=== PATIENT | male | born 1965 | race African-American/Black ===

== ENCOUNTER 2018-02-05 08:09 | Observation (INO) ==
--- NOTE | 2018-02-05 08:39 | ED ---
HPI General Chief Complaint: Dizziness Stated Complaint: vertigo Time Seen by Provider: 02/05/18 08:27 Source: patient Mode of arrival: ambulatory Limitations: no limitations History of Present Illness HPI Narrative: 52-year-old male patient with history of hypertension, previous history of diabetes, presents to the ER today because he woke up this morning feeling dizzy, felt like he was going to faint. He states that it lasted until he came to the ER and he states is now subsiding. He denies any headaches, chest pains, trouble breathing, vomiting, fevers, or any other symptoms. He denies any numbness, difficulty walking, difficulty talking, weakness, or other symptoms. Related Data Home Medications Medication Instructions Recorded Confirmed amlodipine 02/05/18 carvedilol 02/05/18 clonidine HCl 0.2 mg PO BID 02/05/18 02/05/18 furosemide 02/05/18 hydroxyzine HCl 02/05/18 isosorbide dinitrate 02/05/18 lisinopril 02/05/18 Allergies Allergy/AdvReac Type Severity Reaction Status Date / Time iodine Allergy Severe Unverified 12/08/16 19:09 potassium iodide Allergy Severe Unverified 12/08/16 19:09 povidone-iodine Allergy Severe Unverified 12/08/16 19:09 sodium iodide Allergy Severe Unverified 12/08/16 19:09 sodium iodide Allergy Severe Unverified 12/08/16 19:09 Review of Systems ROS: all other systems reviewed are negative [facility] Medical History Medical History HTN (hypertension) (Acute) Social History Social History Smoking Status: Never smoker How Often Do You Have a Drink Containing Alcohol: Never Recent Travel in [facility] within the Last 8 Weeks: No Recent Out of Country Travel within the Last 8 Weeks: No Immunization History Tetanus Immunization: Unsure Exam Narrative Exam Narrative: GENERAL: Well-developed middle-age -[place] male patient currently in mild distress. Awake and oriented x3. SKIN: Focused skin assessment warm/dry. HEAD: Atraumatic. Normocephalic. EYES: Pupils equal and round. No scleral icterus. No injection or drainage. ENT: No nasal bleeding or discharge. Mucous membranes pink and moist. NECK: Trachea midline. No JVD. Supple. CARDIOVASCULAR: Regular rate and rhythm. No murmur appreciated. RESPIRATORY: No accessory muscle use. Clear to auscultation. Breath sounds equal bilaterally. GASTROINTESTINAL: Abdomen soft, non-tender, nondistended. Hepatic and splenic margins not palpable. MUSCULOSKELETAL: No obvious deformities. No clubbing. No cyanosis. No edema. NEUROLOGICAL: Awake and alert. No obvious cranial nerve deficits. Motor grossly within normal limits. Normal speech. No pronator drift. Negative Romberg. PSYCHIATRIC: Appropriate mood and affect; insight and judgment normal. Course Initial Documented Vital Signs Temperature 97.7 F 02/05/18 08:12 Pulse Rate 58 L 02/05/18 08:12 Blood Pressure 140/65 02/05/18 08:12 Pulse Oximetry 98 02/05/18 08:12 Last Documented Vital Signs Temperature 97.7 F 02/05/18 08:12 Pulse Rate 45 L 02/05/18 09:50 Respiratory Rate 18 02/05/18 09:50 Blood Pressure 160/87 H 02/05/18 09:50 Pulse Oximetry 99 02/05/18 09:50 Medical Decision Making MDM Narrative Medical decision making narrative: Lab work was fairly unremarkable for electrolyte issues. His EKG does show significant sinus bradycardia with a first-degree AV block, rate is running in the high 40s. I think that is why he is symptomatic. Troponins are negative. No electrolyte abnormalities were identified. At this point, my plan would be to admit him as an observation for further evaluation of the bradycardia. He did take clonidine this morning. He is otherwise also on carvedilol which she did not take this morning. The case was discussed with Dr. Adhikari for admission. Medical Screen Exam Complete: Yes Emergency Medical Condition: Yes Differential Diagnosis Differential Diagnosis: Orthostasis versus dehydration versus dysrhythmias versus electrolyte abnormalities Lab Data Lab results reviewed: Yes I reviewed the patient's lab results. Result diagrams: 02/05/18 08:45 02/05/18 08:45 Lab Results 02/05/18 02/05/18 02/05/18 Range/Units 08:45 08:45 08:45 WBC 3.4 L (4.0-11.0) th/mm3 RBC 4.34 L (4.50-5.90) mil/mm3 Hgb 12.6 L (13.0-17.0) gm/dL Hct 37.4 L (39.0-51.0) % MCV 86.2 (80.0-100.0) fL MCH 29.2 (27.0-34.0) pg MCHC 33.8 (32.0-36.0) % RDW 14.1 (11.6-17.2) % Plt Count 192 (150-450) th/mm3 MPV 8.4 (7.0-11.0) fL Neut % (Auto) 62.3 (16.0-70.0) % Lymph % (Auto) 20.1 (9.0-44.0) % [place] % (Auto) 12.3 H (0.0-8.0) % Eos % (Auto) 4.6 H (0.0-4.0) % Baso % (Auto) 0.7 (0.0-2.0) % Neut # (Auto) 2.1 (1.8-7.7) th/mm3 Lymph # (Auto) 0.7 L (1.0-4.8) th/mm3 [place] # (Auto) 0.4 (0.0-0.9) th/mm3 Eos # (Auto) 0.2 (0.0-0.4) th/mm3 Baso # (Auto) 0.0 (0.0-0.2) th/mm3 WBC Differential . Differential Comment Auto diff final Sodium 137 (136-145) meq/L Potassium 4.5 (3.5-5.1) meq/L Chloride 106 (98-107) meq/L Carbon Dioxide 24.8 (21.0-32.0) meq/L Anion Gap 6 (5-15) meq/L BUN 40 H (7-18) mg/dL Creatinine 1.87 H (0.60-1.30) mg/dL Estimated GFR 46 L (>89) mL/min Random Glucose 118 H (74-106) mg/dL Calcium 8.5 (8.5-10.1) mg/dL Total Bilirubin 0.3 (0.2-1.0) mg/dL AST 21 (15-37) U/L ALT 21 (12-78) U/L Alkaline Phosphatase 66 (45-117) U/L Troponin I 0.02 (0.02-0.05) ng/mL Total Protein 8.0 (6.4-8.2) g/dL Albumin 3.4 (3.4-5.0) g/dL Urine Color (Yellw/Straw) Urine Clarity (Clear) Urine pH (5.0-8.5) Ur Specific [place] (1.002-1.035) Urine Protein (Neg-Trace) mg/dL Urine Glucose (UA) (Negative) mg/dL Urine Ketones (Negative) mg/dL Urine Occult Blood (Negative) Urine Nitrate (Negative) Urine Bilirubin (Negative) Urine Urobilinogen (Less than 2) mg/dL Ur Leukocyte Esterase (Negative) Urine RBC (0-3) /hpf Ur Squamous Epith Cells (0-5) /hpf Urine Mucus (Occasional) /lpf Micro UA Comment Ur Microscopic Review Urine Culture Comments Urine Opiates Screen Neg (Neg) Ur Barbiturates Screen Neg (Neg) Ur Amphetamines Screen Neg (Neg) U Benzodiazepines Scrn Neg (Neg) Urine Cocaine Screen Neg (Neg) U Cannabinoids Screen Neg (Neg) 02/05/18 Range/Units 08:45 WBC (4.0-11.0) th/mm3 RBC (4.50-5.90) mil/mm3 Hgb (13.0-17.0) gm/dL Hct (39.0-51.0) % MCV (80.0-100.0) fL MCH (27.0-34.0) pg MCHC (32.0-36.0) % RDW (11.6-17.2) % Plt Count (150-450) th/mm3 MPV (7.0-11.0) fL Neut % (Auto) (16.0-70.0) % Lymph % (Auto) (9.0-44.0) % [place] % (Auto) (0.0-8.0) % Eos % (Auto) (0.0-4.0) % Baso % (Auto) (0.0-2.0) % Neut # (Auto) (1.8-7.7) th/mm3 Lymph # (Auto) (1.0-4.8) th/mm3 [place] # (Auto) (0.0-0.9) th/mm3 Eos # (Auto) (0.0-0.4) th/mm3 Baso # (Auto) (0.0-0.2) th/mm3 WBC Differential Differential Comment Sodium (136-145) meq/L Potassium (3.5-5.1) meq/L Chloride (98-107) meq/L Carbon Dioxide (21.0-32.0) meq/L Anion Gap (5-15) meq/L BUN (7-18) mg/dL Creatinine (0.60-1.30) mg/dL Estimated GFR (>89) mL/min Random Glucose (74-106) mg/dL Calcium (8.5-10.1) mg/dL Total Bilirubin (0.2-1.0) mg/dL AST (15-37) U/L ALT (12-78) U/L Alkaline Phosphatase (45-117) U/L Troponin I (0.02-0.05) ng/mL Total Protein (6.4-8.2) g/dL Albumin (3.4-5.0) g/dL Urine Color Straw (Yellw/Straw) Urine Clarity Clear (Clear) Urine pH 5.0 (5.0-8.5) Ur Specific [place] 1.010 (1.002-1.035) Urine Protein Negative (Neg-Trace) mg/dL Urine Glucose (UA) Negative (Negative) mg/dL Urine Ketones Negative (Negative) mg/dL Urine Occult Blood Negative (Negative) Urine Nitrate Negative (Negative) Urine Bilirubin Negative (Negative) Urine Urobilinogen Less than 2 (Less than 2) mg/dL Ur Leukocyte Esterase Negative (Negative) Urine RBC Less than 1 (0-3) /hpf Ur Squamous Epith Cells <1 (0-5) /hpf Urine Mucus Few H (Occasional) /lpf Micro UA Comment Culture not ind Ur Microscopic Review Not Reportable Urine Culture Comments Culture not ind Urine Opiates Screen (Neg) Ur Barbiturates Screen (Neg) Ur Amphetamines Screen (Neg) U Benzodiazepines Scrn (Neg) Urine Cocaine Screen (Neg) U Cannabinoids Screen (Neg) ECG Data Attestation: I personally reviewed and interpreted this ECG as follows: Interpretation: EKG shows sinus bradycardia at a rate of 49 bpm. No signs of acute ST elevations or depressions. Discharge Plan Discharge Details Anticipated Discharge Date: 02/05/18 Physicians Team ED Provider: Clint Sol Primary Care Provider: UNKNOWN, Rxs /Orders / Referrals /Forms Prescriptions: No Action clonidine HCl 0.2 mg Tablet 0.2 mg PO BID RF: 0 amlodipine RF: 0 carvedilol RF: 0 furosemide RF: 0 hydroxyzine HCl RF: 0 isosorbide dinitrate RF: 0 lisinopril RF: 0 Discharge Interventions Interventions: Vital Signs Last Done: 02/05/18 09:50 Status ED Status: With Doctor
[2018-02-05 08:55] VITALS: O2SAT 99
[2018-02-05 08:58] LABS: Baso % (Auto) 0.7 % (0.0-2.0); Eos # (Auto) 0.2 th/mm3 (0.0-0.4); Eos % (Auto) 4.6 % (0.0-4.0); Hematocrit 37.4 % (39.0-51.0); Hemoglobin 12.6 gm/dL (13.0-17.0); Lymph # (Auto) 0.7 th/mm3 (1.0-4.8); Lymph % (Auto) 20.1 % (9.0-44.0); Mean Corpuscular HGB Conc 33.8 % (32.0-36.0); Mean Corpuscular Hemoglobin 29.2 pg (27.0-34.0); Mean Corpuscular Volume 86.2 fL (80.0-100.0); Mean Platelet Volume 8.4 fL (7.0-11.0); Mono # (Auto) 0.4 th/mm3 (0.0-0.9); Mono % (Auto) 12.3 % (0.0-8.0); Neut # (Auto) 2.1 th/mm3 (1.8-7.7); Neut % (Auto) 62.3 % (16.0-70.0); Platelet Count 192 th/mm3 (150-450); Red Blood Count 4.34 mil/mm3 (4.50-5.90); Red Cell Distribution Width 14.1 % (11.6-17.2); White Blood Count 3.4 th/mm3 (4.0-11.0)
[2018-02-05 09:09] LABS: Bilirubin,Urine Negative (Negative); Clarity,Urine Clear (Clear); Color,Urine Straw (Yellw/Straw); Glucose,Urine (UA) Negative (Negative); Leukocyte Esterase,Urine Negative (Negative); Mucus,Urine Few /lpf (Occasional); Nitrite,Urine Negative (Negative); Squamous Epithelial Cell,Urine <1 /hpf (0-5)
[2018-02-05 09:11] LABS: Alanine Aminotransferase 21 U/L (12-78)
[2018-02-05 09:15] LABS: Alkaline Phosphatase 66 U/L (45-117); Amphetamine Screen,Urine Neg (Neg); Barbiturate Screen,Urine Neg (Neg); Cannabinoid Screen,Urine Neg (Neg); Cocaine Screen,Urine Neg (Neg); Troponin I 0.02 ng/mL (0.02-0.05)
[2018-02-05 09:16] LABS: Opiate Screen,Urine Neg (Neg)
[2018-02-05 09:18] LABS: Albumin 3.4 g/dL (3.4-5.0); Anion Gap 6 meq/L (5-15); Aspartate Aminotransferase 21 U/L (15-37); Blood Urea Nitrogen 40 mg/dL (7-18); Calcium 8.5 mg/dL (8.5-10.1); Carbon Dioxide 24.8 meq/L (21.0-32.0); Chloride 106 meq/L (98-107); Glomerular Filtration Rate 46 mL/min (>89); Glucose,Random 118 mg/dL (74-106); Potassium 4.5 meq/L (3.5-5.1); Sodium 137 meq/L (136-145)
[2018-02-05] MEDS ORDERED: Acetaminophen 325 MG Tablet PO PRN (10:45)
[2018-02-05] MEDS ORDERED: Sod Chloride 0.9% Inj 1,000 ML IV.CONT SCH (10:45)
--- NOTE | 2018-02-05 11:09 | P.HP ---
<Sonya Jacome W - Last Filed: 02/05/18 14:16> History of Present Illness Primary Care Physician: UNKNOWN Chief Complaint: dizziness History of Present Illness: This is a 52 year old male patient with a past medical history which includes HTN, CKD stage, CHF and DM diet controlled not on medication. Patient presents to the ER due to dizziness which started this AM. Patient reports he woke up and felt like he was going to faint. Patient did not fall or lose consciences. Patient reports that the dizziness had resolved since being in the ER. Patient denies any headaches, chest pains, trouble breathing, vomiting, fevers, numbness, difficulty walking, difficulty talking, weakness. 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 ETOH use, Tobacco use or illicit drug use - Diagnosis (1) Bradycardia Review of Systems All other systems reviewed negative except as stated in HPI [facility] - History History Provided By: Patient - Medical History Medical History: Medical History (Last Reviewed 02/05/18 @ 13:47 by Samantha Irwin) HTN (hypertension) - Tobacco History Smoking Status: Never smoker - Alcohol History How Often Do You Have a Drink Containing Alcohol: Never - Travel History Recent Travel in the [place] Within the Last 8 Weeks: No Recent Travel Out of the Country Within the Last 8 Weeks: No - Immunization History Tetanus Immunization: Unsure Medications and Allergies Allergies Allergy/AdvReac Type Severity Reaction Status Date / Time iodine Allergy Severe Swelling Verified 02/05/18 11:22 of Lip/Tongue/Throat potassium iodide Allergy Severe Swelling Verified 02/05/18 11:22 of Lip/Tongue/Throat povidone-iodine Allergy Severe Swelling Verified 02/05/18 11:22 of Lip/Tongue/Throat sodium iodide Allergy Severe Swelling Verified 02/05/18 11:22 of Lip/Tongue/Throat sodium iodide Allergy Severe Swelling Verified 02/05/18 11:22 of Lip/Tongue/Throat Home Medications Medication Instructions Recorded Confirmed Type amlodipine 10 mg PO DAILY 02/05/18 02/05/18 History furosemide 40 mg PO BID 02/05/18 02/05/18 History hydralazine 50 mg PO TID 02/05/18 02/05/18 History isosorbide dinitrate 20 mg PO TID 02/05/18 02/05/18 History lisinopril 5 mg PO DAILY 02/05/18 02/05/18 History Active Medications: Active Medications Acetaminophen (Tylenol) 650 mg PO Q4H PRN PRN Reason: Temp > 100.4 Al Hydroxide/Mg Hydroxide (Milk Of Larisa Avilez) 30 ml PO Q12H PRN PRN Reason: Mild Constipation Sodium Chloride (Ns Inj) 1,000 mls @ 100 mls/hr IV.CONT .Q10H [facility] Stop: 02/05/18 20:44 Non-Formulary Medication (Furosemide) 40 mg PO BID [facility] Non-Formulary Medication (Hydroxyzine Hcl) 50 mg PO TID [facility] Non-Formulary Medication (Isosorbide Dinitrate) 20 mg PO TID [facility] Non-Formulary Medication (Lisinopril) 5 mg PO DAILY [facility] Ondansetron HCl (Zofran Inj) 4 mg IV.PUSH Q6H PRN PRN Reason: NAUSEA OR VOMITING Senna/Docusate Sodium (Jessica-Colace) 1 tab PO BID [facility] Sodium Chloride (Ns Flush) 2 ml IV.FLUSH PRN PRN PRN Reason: FLUSH AFTER USING IV ACCESS Exam Vital signs: Vital Signs 02/05/18 08:12 02/05/18 08:54 02/05/18 09:50 Temperature 97.7 F Pulse Rate 58 L 60 45 L Respiratory Rate 18 18 Blood Pressure 140/65 149/75 H 160/87 H Pulse Oximetry 98 99 99 02/05/18 10:49 Temperature Pulse Rate 43 L Respiratory Rate 20 Blood Pressure 161/83 H Pulse Oximetry Intake & Output 02/04/18 02/05/18 02/05/18 18:59 06:59 18:59 Weight 145.15 kg Narrative: GENERAL: This is a well-nourished, well-developed patient, in no apparent distress. CARDIOVASCULAR: Bradycardic RESPIRATORY: Clear to auscultation. Breath sounds equal bilaterally. GASTROINTESTINAL: Abdomen soft, non-tender, nondistended. Normal active bowel sounds MUSCULOSKELETAL: Extremities without clubbing, cyanosis, or edema. NEURO: Alert & Oriented x4 to person, place, time, situation. Moves all ext x4 Results - Labs CBC & Chem 7: 02/05/18 08:45 02/05/18 08:45 Labs: Laboratory Results - last 24 hr 02/05/18 02/05/18 02/05/18 08:45 08:45 08:45 WBC 3.4 L RBC 4.34 L Hgb 12.6 L Hct 37.4 L MCV 86.2 MCH 29.2 MCHC 33.8 RDW 14.1 Plt Count 192 MPV 8.4 Neut % (Auto) 62.3 Lymph % (Auto) 20.1 [place] % (Auto) 12.3 H Eos % (Auto) 4.6 H Baso % (Auto) 0.7 Neut # (Auto) 2.1 Lymph # (Auto) 0.7 L [place] # (Auto) 0.4 Eos # (Auto) 0.2 Baso # (Auto) 0.0 WBC Differential . Differential Comment Auto diff final Sodium 137 Potassium 4.5 Chloride 106 Carbon Dioxide 24.8 Anion Gap 6 BUN 40 H Creatinine 1.87 H Estimated GFR 46 L Random Glucose 118 H Calcium 8.5 Total Bilirubin 0.3 AST 21 ALT 21 Alkaline Phosphatase 66 Troponin I 0.02 Total Protein 8.0 Albumin 3.4 Urine Color Urine Clarity Urine pH Ur Specific [place] Urine Protein Urine Glucose (UA) Urine Ketones Urine Occult Blood Urine Nitrate Urine Bilirubin Urine Urobilinogen Ur Leukocyte Esterase Urine RBC Ur Squamous Epith Cells Urine Mucus Micro UA Comment Ur Microscopic Review Urine Culture Comments Urine Opiates Screen Neg Ur Barbiturates Screen Neg Ur Amphetamines Screen Neg U Benzodiazepines Scrn Neg Urine Cocaine Screen Neg U Cannabinoids Screen Neg 02/05/18 08:45 WBC RBC Hgb Hct MCV MCH MCHC RDW Plt Count MPV Neut % (Auto) Lymph % (Auto) [place] % (Auto) Eos % (Auto) Baso % (Auto) Neut # (Auto) Lymph # (Auto) [place] # (Auto) Eos # (Auto) Baso # (Auto) WBC Differential Differential Comment Sodium Potassium Chloride Carbon Dioxide Anion Gap BUN Creatinine Estimated GFR Random Glucose Calcium Total Bilirubin AST ALT Alkaline Phosphatase Troponin I Total Protein Albumin Urine Color Straw Urine Clarity Clear Urine pH 5.0 Ur Specific [place] 1.010 Urine Protein Negative Urine Glucose (UA) Negative Urine Ketones Negative Urine Occult Blood Negative Urine Nitrate Negative Urine Bilirubin Negative Urine Urobilinogen Less than 2 Ur Leukocyte Esterase Negative Urine RBC Less than 1 Ur Squamous Epith Cells <1 Urine Mucus Few H Micro UA Comment Culture not ind Ur Microscopic Review Not Reportable Urine Culture Comments Culture not ind Urine Opiates Screen Ur Barbiturates Screen Ur Amphetamines Screen U Benzodiazepines Scrn Urine Cocaine Screen U Cannabinoids Screen Caprini VTE Risk Assessment Caprini VTE Risk Assessment: No/Low Risk (score <= 1) Caprini Risk Assessment Model: Point Value = 1 Point Value = 2 Point Value = 3 Point Value = 5 Age 41-60 Minor surgery BMI > 25 kg/m2 Swollen legs Varicose veins or History of unexplained or recurrent spontaneous Oral contraceptives or hormone replacement Sepsis (< 1 month) Serious lung disease, including pneumonia (< 1 month) Abnormal pulmonary function Acute myocardial infarction Congestive heart failure (< 1 month) History of inflammatory bowel disease Medical patient at bed rest Age 61-74 Arthroscopic surgery Major open surgery (> 45 min) Laparoscopic surgery (> 45 min) Malignancy Confined to bed (> 72 hours) Immobilizing plaster cast Central venous access Age >= 75 History of VTE Family history of VTE Factor V Leiden Prothrombin [id number] Lupus anticoagulant Anticardiolipin antibodies Elevated serum homocysteine Heparin-induced thrombocytopenia Other congenital or acquired thrombophilia Stroke (< 1 month) Elective arthroplasty Hip, pelvis, or leg fracture Acute spinal cord injury (< 1 month) Prophylaxis Regimen: Total Risk Factor Score Risk Level Prophylaxis Regimen 0-1 Low Early ambulation 2 Moderate Order ONE of the following: *Sequential Compression Device (SCD) *Heparin 5000 units SQ BID 3-4 Higher Order ONE of the following medications: *Heparin 5000 units SQ TID *Enoxaparin/Lovenox 40 mg SQ daily (WT < 150 kg, CrCl > 30 mL/min) *Enoxaparin/Lovenox 30 mg SQ daily (WT < 150 kg, CrCl > 10-29 mL/min) *Enoxaparin/Lovenox 30 mg SQ BID (WT < 150 kg, CrCl > 30 mL/min) AND/OR *Sequential Compression Device (SCD) 5 or more Highest Order ONE of the following medications: *Heparin 5000 units SQ TID (Preferred with Epidurals) *Enoxaparin/Lovenox 40 mg SQ daily (WT < 150 kg, CrCl > 30 mL/min) *Enoxaparin/Lovenox 30 mg SQ daily (WT < 150 kg, CrCl > 10-29 mL/min) *Enoxaparin/Lovenox 30 mg SQ BID (WT < 150 kg, CrCl > 30 mL/min) AND *Sequential Compression Device (SCD) Assessment and Plan - Assessment (1) Bradycardia Code(s): R00.1 - Bradycardia, unspecified Status: Acute Plan: This is a 52 year old male patient with a past medical history which includes HTN, CKD stage, CHF and DM diet controlled not on medication. Patient presents to the ER due to dizziness which started this AM. Patient reports he woke up and felt like he was going to faint. Patient did not fall or lose consciences. Patient reports that the dizziness had resolved since being in the ER. Patient denies any headaches, chest pains, trouble breathing, vomiting, fevers, numbness, difficulty walking, difficulty talking, weakness. Dizziness - likely related to patient's bradycardia Bradycardia - Patient takes multiple BP medication at home including: Carvedilol 12.5 mg PO BID, Amlodipine 10 mg PO daily, isosorbide 20 mg PO TID, lisinopril 5 mg PO daily and clonidine 0.2 mg BID - will hold Carvedilol 12.5 mg PO BID, Amlodipine 10 mg PO daily and clonidine 0.2 mg BID - Continue home medications including isosorbide 20 mg PO TID, lisinopril 5 mg PO daily - monitor patient on telemetry - CT head ordered and pending - 2D echocardiogram ordered and pending - PT consulted Diet controlled DM type 2 - Diabetic diet Hx of CHF unknown type - last echocardiogram found in review of prior record 10/18/2013 showed EF of 45- 50% - 2D echocardiogram ordered and pending - continue patient's home Lasix 40 mg PO BID DVT prophylaxis with SCDs <Jani Adhikari - Last Filed: 02/11/18 09:43> History of Present Illness Primary Care Physician: UNKNOWN - Diagnosis (1) Bradycardia [facility] - Medical History Medical History: Medical History (Last Reviewed 02/05/18 @ 13:47 by Samantha Irwin) HTN (hypertension) Results - Labs CBC & Chem 7: 02/05/18 08:45 02/05/18 08:45 Caprini VTE Risk Assessment Caprini Risk Assessment Model: Point Value = 1 Point Value = 2 Point Value = 3 Point Value = 5 Age 41-60 Minor surgery BMI > 25 kg/m2 Swollen legs Varicose veins or History of unexplained or recurrent spontaneous Oral contraceptives or hormone replacement Sepsis (< 1 month) Serious lung disease, including pneumonia (< 1 month) Abnormal pulmonary function Acute myocardial infarction Congestive heart failure (< 1 month) History of inflammatory bowel disease Medical patient at bed rest Age 61-74 Arthroscopic surgery Major open surgery (> 45 min) Laparoscopic surgery (> 45 min) Malignancy Confined to bed (> 72 hours) Immobilizing plaster cast Central venous access Age >= 75 History of VTE Family history of VTE Factor V Leiden Prothrombin [id number] Lupus anticoagulant Anticardiolipin antibodies Elevated serum homocysteine Heparin-induced thrombocytopenia Other congenital or acquired thrombophilia Stroke (< 1 month) Elective arthroplasty Hip, pelvis, or leg fracture Acute spinal cord injury (< 1 month) Prophylaxis Regimen: Total Risk Factor Score Risk Level Prophylaxis Regimen 0-1 Low Early ambulation 2 Moderate Order ONE of the following: *Sequential Compression Device (SCD) *Heparin 5000 units SQ BID 3-4 Higher Order ONE of the following medications: *Heparin 5000 units SQ TID *Enoxaparin/Lovenox 40 mg SQ daily (WT < 150 kg, CrCl > 30 mL/min) *Enoxaparin/Lovenox 30 mg SQ daily (WT < 150 kg, CrCl > 10-29 mL/min) *Enoxaparin/Lovenox 30 mg SQ BID (WT < 150 kg, CrCl > 30 mL/min) AND/OR *Sequential Compression Device (SCD) 5 or more Highest Order ONE of the following medications: *Heparin 5000 units SQ TID (Preferred with Epidurals) *Enoxaparin/Lovenox 40 mg SQ daily (WT < 150 kg, CrCl > 30 mL/min) *Enoxaparin/Lovenox 30 mg SQ daily (WT < 150 kg, CrCl > 10-29 mL/min) *Enoxaparin/Lovenox 30 mg SQ BID (WT < 150 kg, CrCl > 30 mL/min) AND *Sequential Compression Device (SCD) Assessment and Plan - Assessment (1) Bradycardia Code(s): R00.1 - Bradycardia, unspecified Status: Acute - Attending Attestation The exam, history, and the medical decision-making described in the above note were completed with the assistance of the mid-level provider. I reviewed and agree with the findings presented. I attest that I had a [id number] encounter with the patient on the same day, and personally performed and documented my assessment and findings in the medical record. Patient examined. Assessment and plan formulated with Sonya Jacome PA-C. I agree with the above.
[2018-02-05] MEDS ORDERED: Lisinopril 5 MG Tablet PO SCH (11:15)
[2018-02-05] MEDS ORDERED: Furosemide 40 MG Tablet PO SCH (11:15)
--- NOTE | 2018-02-05 11:54 | CT ---
EXAM DATE: 02/05/2018 10:58 AM EDT AGE/SEX: 52 years / Male INDICATIONS: Patient complains of dizziness. CLINICAL DATA: This is the patient's initial encounter. Patient reports that signs and symptoms have been present for 1 day and indicates a pain score of 0/10. MEDICAL/SURGICAL HISTORY: Hypertension. None. RADIATION DOSE: 46.33 CTDI (mGy) COMPARISON: [facility] [place]/O [place], 03/05/2012. . TECHNIQUE: CT of the head without contrast. Using automated exposure control and adjustment of the mA and/or kV according to patient size, radiation dose was kept as low as reasonably achievable to ob tain optimal diagnostic quality images. DICOM format image data is available electronically for revi ew and comparison. FINDINGS: Cerebrum: The ventricles are normal for age. No evidence of midline shift, mass lesion, hemorrhage or acute infarction. No extraaxial fluid collections are seen. Posterior Fossa: The cerebellum and brainstem are intact. The 4th ventricle is midline. The cerebe llopontine angle is unremarkable. Extracranial: The visualized portion of the orbits is intact. Skull: The calvaria is intact. No evidence of skull fracture. CONCLUSION: 1. Negative CT Head non contrast. . Electronically signed by: Zaira Blakely MD 02/05/2018 11:53 AM EDT
[2018-02-05 12:29] VITALS: RESP 16
[2018-02-05] MEDS ORDERED: hydrALAZINE 50 MG Tablet PO SCH (13:30)
--- NOTE | 2018-02-05 14:52 | ECHRPT ---
Indication: Cardiomyopathy, unspecified CONCLUSIONS Technically difficult study. The left ventricular systolic function is low normal with an estimated ejection fraction in the rang e of 50- 55%. Mild concentric left ventricular hypertrophy. [id number] mitral valve regurgitation. There is trace tricuspid valve regurgitation. BP: / HR: Rhythm: Sinus MEASUREMENTS (Male / Female) Normal Values Technical Quality:Technically difficult study 2D ECHO LV Diastolic Diameter PLAX 4.9 cm 4.2 - 5.9 / 3.9 - 5.3 cm LV Systolic Diameter PLAX 3.8 cm IVS Diastolic Thickness 1.3 cm 0.6 - 1.0 / 0.6 - 0.9 cm LVPW Diastolic Thickness 1.3 cm 0.6 - 1.0 / 0.6 - 0.9 cm LV Relative Wall Thickness 0.5 LVOT Diameter 2.2 cm M-MODE Aortic Root Diameter MM 3.5 cm LA Systolic Diameter MM 4.2 cm LA Ao Ratio MM 1.2 AV Cusp Separation MM 2.3 cm DOPPLER AV Peak Velocity 155.0 cm/s AV Peak Gradient 9.6 mmHg LVOT Peak Velocity 104.0 cm/s LVOT Peak Gradient 4.3 mmHg AV Area Cont Eq pk 2.6 cm MR Peak Velocity 359.5 cm/s MR Peak Gradient 51.7 mmHg Mitral E Point Velocity 82.9 cm/s Mitral A Point Velocity 51.3 cm/s Mitral E to A Ratio 1.6 LV E' Septal Velocity 11.2 cm/s Mitral E to LV E' Septal Ratio 7.4 PV Peak Velocity 84.2 cm/s PV Peak Gradient 2.8 mmHg FINDINGS LEFT VENTRICLE The left ventricular systolic function is low normal with an estimated ejection fraction in the rang e of 50- 55%. Normal left ventricular size. Mild concentric left ventricular hypertrophy. RIGHT VENTRICLE Grossly normal, possible mildly dilated. LEFT ATRIUM The left atrial size is mildly dilated. RIGHT ATRIUM The right atrial size is mildly dilated. ATRIAL SEPTUM The interatrial septum not well visualized. AORTA The aortic root and proximal ascending aorta are not well visualized. MITRAL VALVE Grossly normal [id number] mitral valve regurgitation. No mitral valve stenosis. AORTIC VALVE Grossly normal No aortic valve regurgitation. No aortic valve stenosis. TRICUSPID VALVE Structurally normal tricuspid valve. There is trace tricuspid valve regurgitation. No tricuspid valve stenosis. PULMONARY VALVE The pulmonary valve is not well visualized. PERICARDIUM No pericardial effusion. Gregory Tinsley DO (Electronically Signed) Final Date:05 February 2018 14:51
[2018-02-05 16:31] VITALS: BP 172/86; PULSE 53; TEMP 98.8
--- NOTE | 2018-02-05 17:46 | P.DS ---
<Sonya Jacome W - Last Filed: 02/05/18 17:39> Date of admission: 02/05/18 10:35 Primary care physician: Dr. Hernandez Attending physician on discharge: Jani Adhikari Anticipated date of discharge: 02/05/18 Brief History from admission: This is a 52 year old male patient with a past medical history which includes HTN, CKD stage, CHF and DM diet controlled not on medication. Patient presents to the ER due to dizziness which started this AM. Patient reports he woke up and felt like he was going to faint. Patient did not fall or lose consciences. Patient reports that the dizziness had resolved since being in the ER. Patient denies any headaches, chest pains, trouble breathing, vomiting, fevers, numbness, difficulty walking, difficulty talking, weakness. 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 Patient presents to the ER due to dizziness which started this AM. Patient reports he woke up and felt like he was going to faint. Patient did not fall or lose consciences. Patient reports that the dizziness had resolved since being in the ER. Patient denies any headaches, chest pains, trouble breathing, vomiting, fevers, numbness, difficulty walking, difficulty talking, weakness. Dizziness - likely related to patient's bradycardia Bradycardia - Patient takes multiple BP medication at home including: Carvedilol 12.5 mg PO BID, Amlodipine 10 mg PO daily, isosorbide 20 mg PO TID, lisinopril 5 mg PO daily and clonidine 0.2 mg BID - will hold Carvedilol 12.5 mg PO BID, Amlodipine 10 mg PO daily and clonidine 0.2 mg BID - Continue home medications including isosorbide 20 mg PO TID, lisinopril 5 mg PO daily - monitor patient on telemetry - CT head ordered reviewed and reveals: Negative CT Head non contrast. - 2D echocardiogram: The left ventricular systolic function is low normal with an estimated ejection fraction in the range of 50- 55%. Mild concentric left ventricular hypertrophy. [id number] mitral valve regurgitation. There is trace tricuspid valve regurgitation. 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 in order to be at work in the morning Patient agrees to follow up with PCP and cardiology after DC - Time Spent with Patient Total time spent providing and/or coordinating discharge services: Greater than 30 minutes - Quality: VTE Deep Vein Thrombosis/Pulmonary Embolism Present on Admission: No Exam Vital signs: Vital Signs 02/05/18 08:12 02/05/18 08:54 02/05/18 09:50 Temperature 97.7 F Pulse Rate 58 L 60 45 L Respiratory Rate 18 18 Blood Pressure 140/65 149/75 H 160/87 H Pulse Oximetry 98 99 99 02/05/18 10:49 02/05/18 12:00 02/05/18 16:00 Temperature 97.8 F 98.8 F Pulse Rate 43 L 56 L 53 L Respiratory Rate 20 16 16 Blood Pressure 161/83 H 168/91 H 172/86 H Pulse Oximetry 99 99 Intake & Output 02/04/18 02/05/18 02/05/18 18:59 06:59 18:59 Weight 145.15 kg Other: Date of Last Bowel Movement 02/05/18 Weight On Admission 145.15 kg Narrative: GENERAL: This is a well-nourished, well-developed patient, in no apparent distress. CARDIOVASCULAR: regular rate and rhythm RESPIRATORY: Clear to auscultation. Breath sounds equal bilaterally. GASTROINTESTINAL: Abdomen soft, non-tender, nondistended. Normal active bowel sounds MUSCULOSKELETAL: Extremities without clubbing, cyanosis, or edema. NEURO: Alert & Oriented x4 to person, place, time, situation. Moves all ext x4 Results Procedures completed during hospitalization: None Labs on day of discharge: Labs from last 24 hours 02/05/18 02/05/18 02/05/18 08:45 08:45 08:45 WBC RBC Hgb Hct MCV MCH MCHC RDW Plt Count MPV Neut % (Auto) Lymph % (Auto) [place] % (Auto) Eos % (Auto) Baso % (Auto) Neut # (Auto) Lymph # (Auto) [place] # (Auto) Eos # (Auto) Baso # (Auto) WBC Differential Differential Comment Sodium 137 Potassium 4.5 Chloride 106 Carbon Dioxide 24.8 Anion Gap 6 BUN 40 H Creatinine 1.87 H Estimated GFR 46 L Random Glucose 118 H Calcium 8.5 Total Bilirubin 0.3 AST 21 ALT 21 Alkaline Phosphatase 66 Troponin I 0.02 Total Protein 8.0 Albumin 3.4 Urine Color Straw Urine Clarity Clear Urine pH 5.0 Ur Specific [place] 1.010 Urine Protein Negative Urine Glucose (UA) Negative Urine Ketones Negative Urine Occult Blood Negative Urine Nitrate Negative Urine Bilirubin Negative Urine Urobilinogen Less than 2 Ur Leukocyte Esterase Negative Urine RBC Less than 1 Ur Squamous Epith Cells <1 Urine Mucus Few H Micro UA Comment Culture not ind Ur Microscopic Review Not Reportable Urine Culture Comments Culture not ind Urine Opiates Screen Neg Ur Barbiturates Screen Neg Ur Amphetamines Screen Neg U Benzodiazepines Scrn Neg Urine Cocaine Screen Neg U Cannabinoids Screen Neg 02/05/18 08:45 WBC 3.4 L RBC 4.34 L Hgb 12.6 L Hct 37.4 L MCV 86.2 MCH 29.2 MCHC 33.8 RDW 14.1 Plt Count 192 MPV 8.4 Neut % (Auto) 62.3 Lymph % (Auto) 20.1 [place] % (Auto) 12.3 H Eos % (Auto) 4.6 H Baso % (Auto) 0.7 Neut # (Auto) 2.1 Lymph # (Auto) 0.7 L [place] # (Auto) 0.4 Eos # (Auto) 0.2 Baso # (Auto) 0.0 WBC Differential . Differential Comment Auto diff final Sodium Potassium Chloride Carbon Dioxide Anion Gap BUN Creatinine Estimated GFR Random Glucose Calcium Total Bilirubin AST ALT Alkaline Phosphatase Troponin I Total Protein Albumin Urine Color Urine Clarity Urine pH Ur Specific [place] Urine Protein Urine Glucose (UA) Urine Ketones Urine Occult Blood Urine Nitrate Urine Bilirubin Urine Urobilinogen Ur Leukocyte Esterase Urine RBC Ur Squamous Epith Cells Urine Mucus Micro UA Comment Ur Microscopic Review Urine Culture Comments Urine Opiates Screen Ur Barbiturates Screen Ur Amphetamines Screen U Benzodiazepines Scrn Urine Cocaine Screen U Cannabinoids Screen - Impressions ITS Impressions Head CT 02/05/18 10:56 CONCLUSION: 1. Negative CT Head non contrast. . <Jani Adhikari - Last Filed: 02/11/18 09:43> Date of admission: 02/05/18 10:35 Primary care physician: UNKNOWN DS: Diagnosis - Discharge Diagnosis (1) Bradycardia Status: Acute DS: Summary Hospital Course: The exam, history, and the medical decision-making described in the above note were completed with the assistance of the mid-level provider. I reviewed and agree with the findings presented. I attest that I had a [id number] encounter with the patient on the same day, and personally performed and documented my assessment and findings in the medical record. Patient examined. Assessment and plan formulated with Sonya Jacome PA-C. I agree with the above. - Time Spent with Patient Total time spent providing and/or coordinating discharge services: Greater than 30 minutes Results - Impressions ITS Impressions Head CT 02/05/18 10:56 CONCLUSION: 1. Negative CT Head non contrast. . Discharge Plan - Discharge Order Discharge Orders: Discharge Order (Routine); Ordered 02/05/18 Ordered By: Sonya Jacome - Discharge Details Anticipated Discharge Date: 02/05/18 - Physicians Team Primary Care Provider: UNKNOWN, Attending Provider: Jani Adhikari
[2018-02-05] MEDS ORDERED: Senna/Docusate Sodium 8.6/50 MG Tablet PO SCH (21:00)
--- NOTE | 2018-02-06 15:56 | ECG ---
Date Performed: 02/05/2018 Time Performed: 08:49:54 PTAGE: 52 years EKG: SINUS BRADYCARDIA WITH SINUS ARRHYTHMIA WITH FIRST DEGREE AV BLOCK INTRAVENTRICULAR CONDUCT ION DELAY ABNORMAL ECG Compared to PREVIOUS TRACING , T-wave change in lead aVL improved, VT interval slightly longer. PREVI OUS TRACIN12/19/2013 19.14.54 DOCTOR: Anthony Hoover Interpretating Date/Time 02/06/2018 15:55:01
== END 2018-02-05 18:25 | disposition home or self-care (01) ==
LOC: NEDA 08:09 → NEPE 08:09 → NEPHCDU 11:19
PROVIDERS: ADMIT Hospitalist; ATTEND Hospitalist
DX: Z91.041 Radiographic dye allergy status; R42 Dizziness and giddiness; R00.1 Bradycardia, unspecified; Z79.899 Other long term (current) drug therapy; I13.0 Hypertensive heart and chronic kidney disease with heart failure and stage 1 through stage 4 chronic kidney disease, or unspecified chronic kidney disease; E11.22 Type 2 diabetes mellitus with diabetic chronic kidney disease; I50.9 Heart failure, unspecified; N18.9 Chronic kidney disease, unspecified